=== PATIENT | male | born 1960 | race African-American/Black ===

== ENCOUNTER 2019-03-12 10:11 | Emergency (ER) | payer OTHER ==
[2019-03-12 10:19] VITALS: BP 144/90; PULSE 93; TEMP 97.7; BMI 32.8
--- NOTE | 2019-03-12 11:14 | PDOC ---
History of Present Illness - General Chief Complaint: Pain Stated Complaint: RT. FOOT PAIN Time Seen by Provider: 03/12/19 10:52 History Source: Patient Exam Limitations: No Limitations Past History - Travel Traveled outside of the country in the last 30 days: No Close contact w/someone who was outside of country & ill: No - Past Medical History Allergies/Adverse Reactions: Allergies Allergy/AdvReac Type Severity Reaction Status Date / Time No Known Allergies Allergy Verified 03/12/19 10:18 Home Medications: Ambulatory Orders Amlodipine Besylate 10 mg PO DAILY 03/12/19 Colchicine 0.6 mg PO DAILY #8 capsule 03/12/19 Darunavir Ethanolate [Prezista] 75 mg PO ASDIR 03/12/19 Elviteg/Cob/Emtri/Tenof Alafen [Genvoya (Non-Formulary)] 1 each PO DAILY Indomethacin 50 mg PO TID #30 capsule 03/12/19 Lisinopril [Zestril] 5 mg PO DAILY 03/12/19 Cancer: Yes (hodgkins) COPD: No Other medical history: kidney failure - Suicide/Smoking/Psychosocial Hx Smoking History: Current every day smoker Number of Cigarettes Smoked Daily: 10 Information on smoking cessation initiated: No Hx Alcohol Use: Yes (beer daily) Drug/Substance Use Hx: No Review of Systems - Review of Systems Able to Perform ROS?: Yes Comments:: 03/12/19 13:30 CONSTITUTIONAL: Absent: fever, chills, diaphoresis, generalized weakness, malaise, loss of appetite MUSCULOSKELETAL: Present: R 1st toe pain Absent: myalgia, arthralgia, joint swelling SKIN: Absent: rash, itching, pallor NEUROLOGIC: Absent: headache, focal weakness or paresthesias, dizziness, unsteady gait, seizure, mental status changes, bladder or bowel incontinence PSYCHIATRIC: Absent: anxiety, depression, suicidal or homicidal ideation, hallucinations. Is the patient limited Azeri proficient: No *Physical Exam - Vital Signs Last Vital Signs Temp Pulse Resp BP Pulse Ox 97.7 F 93 H 16 144/90 97 03/12/19 10:15 03/12/19 10:15 03/12/19 10:15 03/12/19 10:15 03/12/19 10:15 - Physical Exam Comments: 03/12/19 13:39 GENERAL: The patient is awake, alert, and fully oriented, in no acute distress. HEAD: Normal with no signs of trauma. EYES: Pupils equal, round and reactive to light, extraocular movements intact, sclera anicteric, conjunctiva clear. EXTREMITIES: TTP over the 1st MTP joint with associated warmth and swelling. Normal range of motion, no edema. NEUROLOGICAL: Normal speech, normal gait. PSYCH: Normal mood, normal affect. SKIN: Warm, Dry, normal turgor, no rashes or lesions noted. Medical Decision Making - Medical Decision Making 03/12/19 13:40 the patient is a 58-year-old male with past medical history of HIV, hypertension , who present to the ER with 2 days of right first toe pain. The patient states that he woke up yesterday morning with the pain. Denies trauma. He states that the toe was also swollen and warm and tender to touch. Denies history of diabetes and gout. Denies fevers, chills, numbness and tingling and weakness to the affected extremity. A/P: Gout On exam warm erythematous right first MTP joint. Associated swelling noted. X-ray of the toe was negative for fractures Uric acid is 9.9. We will treat this as an acute gout flare Colchicine and indomethacin given in the ER with prescriptions sent to his pharmacy as well. Discharge home to follow with his primary care doctor this week. I discussed the physical exam findings, ancillary test results and final diagnoses with the patient. I answered all of the patient's questions. The patient was satisfied with the care received and felt comfortable with the discharge plan and treatment plan. The Patient agrees to follow up with the primary care physician/specialist within 24-72 hours. Return precautions were given. *DC/Admit/Observation/Transfer Diagnosis at time of Disposition: Gout Qualifiers: Gout site: toe Gout etiology: unspecified cause Chronicity: acute Laterality: right Qualified Code(s): M10.9 - Gout, unspecified - Discharge Dispostion Condition at time of disposition: Stable Decision to Admit order: No - Prescriptions Prescriptions: Colchicine 0.6 mg PO DAILY #8 capsule Indomethacin 50 mg PO TID #30 capsule - Referrals Referrals: Cely Dias FNP [Nurse Practitioner] - - Patient Instructions Printed Discharge Instructions: DI for Gout Additional Instructions: You have gout This is an inflammatory process that affects the joints. You received indomethacin and colchicine today in the ER. Please take the colchicine that was prescribed to you in 1 hour. Then start taking it daily tomorrow. You may take the indomethacin twice a day for pain. You may take 1 dose tonight before bed as you were given your first dose in the ER. Please follow-up with her primary care doctor next week. Return to the ER for any new or worsening symptoms. - Post Discharge Activity
[2019-03-12] MEDS ORDERED: INDOMETHACIN 50 MG CAPSULE PO ONE (12:15)
[2019-03-12] MEDS ORDERED: COLCHICINE 0.6 MG CAP PO ONE (12:16)
== END 2019-03-12 12:52 | disposition home or self-care (01) ==
LOC: JERFT 10:11
DX: M10.9 Gout, unspecified (principal); Z21 Asymptomatic human immunodeficiency virus [HIV] infection status; I10 Essential (primary) hypertension
CPT/HCPCS: 36415; 73630-TC-RT-FY; 84550; 99282-25